=== PATIENT | male | born 1975 | race Hispanic/Latino ===

== ENCOUNTER 2022-01-08 07:59 | Outpatient (CLI) | payer BC ==
[2022-01-08] MEDS ORDERED: Iopamidol 370 76% 100 ML VIAL ONE (14:16)
== END 2022-01-08 08:00 | disposition home or self-care (01) ==
LOC: CT 07:59
PROVIDERS: ATTEND Urology
DX: N32.89 Other specified disorders of bladder (principal); R31.0 Gross hematuria; D35.02 Benign neoplasm of left adrenal gland; K76.9 Liver disease, unspecified; K56.1 Intussusception
CPT/HCPCS: 74178; Q9967

== ENCOUNTER 2022-01-10 14:06 | Outpatient (CLI) | payer BC | END 2022-01-10 14:07 | disposition home or self-care (01) | LOC: LABBT 14:06 | PROVIDERS: ATTEND Urology | DX: Z01.810 Encounter for preprocedural cardiovascular examination (principal) | CPT/HCPCS: 85610; 85730; 86850; 86900; 86901; 87811; 93005; 93010 ==

== ENCOUNTER 2022-01-15 08:50 | Day surgery (SDC) | payer BC ==
[2022-01-10 15:16] LABS: Prothrombin Time 11.2 sec (9.5-12.1)
[2022-01-14 12:23] VITALS: BMI 31.9
[2022-01-15] MEDS ORDERED: mitoMYcin 40 MG in Sodium Chloride 0.9% 40 ML I-VESIC SCH (10:00)
[2022-01-15] MEDS ORDERED: Iopamidol 30 ML ONE (10:23)
[2022-01-15] MEDS ORDERED: fentaNYL Citrate/PF 100 MCG/2 ML SYRINGE ONE (12:24)
[2022-01-15] MEDS ORDERED: Levofloxacin 500 mg/D5W 100 ml Premix Bag ONE (12:26)
[2022-01-15] MEDS ORDERED: Midazolam HCl 2 mg/2 ml Vial ONE (12:26)
[2022-01-15] MEDS ORDERED: Rocuronium Bromide 10 MG/ML (10ML VIAL) ONE (12:40)
[2022-01-15] MEDS ORDERED: Lidocaine 1% PF 5 ML VIAL ONE ×2 (12:40)
[2022-01-15] MEDS ORDERED: Phenylephrine 10 MG/ML VIAL ONE (12:40)
[2022-01-15] MEDS ORDERED: PROPOFOL 200 MG/20 ML VIAL ONE (12:40)
[2022-01-15] MEDS ORDERED: B & O ONE (13:09)
[2022-01-15] MEDS ORDERED: SUGAMMADEX SODIUM 200 MG/2 ML VIAL ONE (13:24)
[2022-01-15] MEDS ORDERED: Oxybutynin 5 MG TAB ONE (14:02)
[2022-01-15] MEDS ORDERED: Phenazopyridine HCl 100 MG TAB ONE (14:02)
== END 2022-01-15 16:25 | disposition home or self-care (01) ==
LOC: SDC 08:50
PROVIDERS: ATTEND Urology
PROC: 0TBB8ZX Excision of Bladder, Via Natural or Artificial Opening Endoscopic, Diagnostic (ICD-10-PCS; principal; 2022-01-15)
PROC: 0T778DZ Dilation of Left Ureter with Intraluminal Device, Via Natural or Artificial Opening Endoscopic (ICD-10-PCS; principal; 2022-01-15)
PROC: 3E0K705 Introduction of Other Antineoplastic into Genitourinary Tract, Via Natural or Artificial Opening (ICD-10-PCS; principal; 2022-01-15)
DX: C67.2 Malignant neoplasm of lateral wall of bladder (principal); N40.1 Benign prostatic hyperplasia with lower urinary tract symptoms; R35.0 Frequency of micturition; I10 Essential (primary) hypertension; Q27.2 Other congenital malformations of renal artery; Z87.891 Personal history of nicotine dependence; Z79.899 Other long term (current) drug therapy; Z20.822 Contact with and (suspected) exposure to COVID-19
CPT/HCPCS: 74420; 85610; 85730; 86850; 86900; 86901; 87811; 88305; 88307; C2617; J1956; J2250; J2370; J2704; J9280; Q9967